=== PATIENT | female | born 1970 | race Two or more races ===

== ENCOUNTER 2025-02-04 10:29 | Emergency (ER) | payer MEDICAID, SELFPAY ==
[2025-02-04 10:46] VITALS: BP 136/90; PULSE 114; RESP 18; TEMP 37.1; O2SAT 97; BMI 31.6
--- NOTE | 2025-02-04 10:50 | XR_ITS ---
Examination: Abdomen sonogram, Limited Date and time of exam: February 04, 2025 1110 hours INDICATIONS: Onset right upper abdominal pain beginning 3 days ago Technique: Real-time crawford scale transabdominal sonographic images of the upper abdomen obtained. Findings: Normal gallbladder. Normal common bile duct 0.4 cm Pancreatic head 2.1 cm Liver 14.1 cm fatty infiltration Normal hepatopedal portal venous flow Patent IVC IMPRESSION: Normal gallbladder.
--- NOTE | 2025-02-04 10:50 | XR_ITS ---
Examination: CT abdomen and pelvis without contrast. Coronal 3-D reconstructions. Sagittal 2-D reconstructions. Date and time of exam:February 04, 2025 1113 hours, comparison March 16, 2024 INDICATIONS: Right-sided flank pain today, history pancreatitis CTDI: vol (mGy): 9.05 DLP: (mGycm): 486 Technique: Axial images of the abdomen have been obtained, 3 mm slice thickness Intravenous contrast material has not been administered. Low dose protocols were performed. One or more of the following dose reduction techniques were used; automated exposure control, adjustment of the mA and/or KV according to patient size, use of iterative reconstruction technique. Findings: Diffuse fatty infiltration throughout the liver, no focal liver or splenic lesions No gallstones No pancreatic mass. No renal or ureteral calculi, no hydronephrosis Aorta normal size No bowel obstruction Normal appendix Atrophic uterus No bladder mass or bladder calculi Moderate osteopenia Impression: No renal or ureteral calculi, no hydronephrosis Normal appendix
--- NOTE | 2025-02-04 10:50 | XR_ITS ---
Examination: PA lateral chest 2 views TECHNIQUE: Upright PA lateral chest 2 views Date and time: February 04, 2025 1058 hours INDICATIONS: Chest pain today. FINDINGS: Normal heart size. Lungs are clear. Osseous structures are intact. IMPRESSION: No active disease.
--- NOTE | 2025-02-04 10:51 | PD.EDRME ---
Rapid Medical Screening Exam RME Arrival date/time: 02/04/25 10:29 54-year-old female presents to the emergency department complaint of upper abdominal pain as well as right-sided rib pain yes Chief Complaint: Abdominal Pain Time Seen by Provider: 02/04/25 10:38 Vital signs: Vital Signs Temperature 98.8 F 02/04/25 10:46 Pulse Rate 114 H 02/04/25 10:46 Respiratory Rate 18 02/04/25 10:46 Blood Pressure 136/90 H 02/04/25 10:46 Pulse Oximetry (%) 97 02/04/25 10:46 Oxygen Delivery Method Room Air 02/04/25 10:46
[2025-02-04 11:14] LABS: Basophils # (Auto) 0.1 Thou/mm3 (0.0-0.2); Basophils % (Auto) 1 % (0-2.5); Eosinophils # (Auto) 0.1 Thou/mm3 (0.0-0.5); Eosinophils % (Auto) 1 % (0-10); Hematocrit 39.3 % (36.0-46.0); Hemoglobin 13.2 g/dL (12.0-16.0); Immature Granulocytes Auto 0.02 Thou/mm3 (0.00-0.00); Lymphocytes # (Auto) 0.9 Thou/mm3 (1.0-4.8); Lymphocytes % (Auto) 14 % (10-50); Mean Corpuscular HGB Conc 33.6 g/dl (31.0-37.0); Mean Corpuscular Hemoglobin 33.6 pg (25.0-35.0); Mean Corpuscular Volume 100 fL (80-100); Monocytes # (Auto) 0.7 Thou/mm3 (0.0-0.8); Monocytes % (Auto) 11 % (0-12); Neutrophils # (Auto) 4.7 Thou/mm3 (1.8-7.7); Neutrophils % (Auto) 72 % (37-80); Nucleated Red Blood Cell # 0.00 Thou/mm3 (0.00-0.00); Nucleated Red Blood Cell % 0 /100 WBC (0); Platelet Count 267 Thou/mm3 (140-440); RDW Standard Deviation 49.4 fL (36.4-46.3); Red Blood Count 3.93 Miln/mm3 (4.00-5.20); White Blood Count 6.5 Thou/mm3 (3.6-11.0)
[2025-02-04 11:24] LABS: Collection Type, Urine Clean Catch
[2025-02-04 11:27] LABS: Alanine Aminotransferase 41 U/L (10-49); Albumin, Serum 4.9 gm/dL (3.5-5.0); Albumin/Globulin Ratio 1.8 (1.2-2.2); Alkaline Phosphatase 88 U/L (46-116); Anion Gap 15 (7-16); Aspartate Amino Transferase 47 U/L (0-34); BUN/Creatinine Ratio 9 Ratio (12-20); Bilirubin,Total 0.9 mg/dL (0.3-1.2); Blood Urea Nitrogen 8 mg/dL (9-23); Calcium 10.1 mg/dL (8.3-10.6); Calcium (Corrected) 10.1 mg/dL (8.5-10.1); Carbon Dioxide 23.8 mMol/L (20.0-31.0); Chloride 98 mMol/L (98-107); Creatinine (Component) 0.9 mg/dL (0.6-1.3); Estimated Creatinine Clearance 55.4 mL/min (>60); Globulin 2.8 gm/dL (2.3-3.5); Glucose 130 mg/dL (74-106); Lipase 23 U/L (12-53); Osmolality,Calculated 274 (275-295); Potassium 4.1 mMol/L (3.4-5.1); Sodium 137 mMol/L (136-145); Total Protein 7.7 gm/dL (5.7-8.2); Troponin I < 0.002 ng/mL (0.0-0.045); eGFR > 60 See Note
[2025-02-04 12:03] LABS: Bacteria,Urine Rare; Bilirubin,Urine 1+ (Negative); Blood,Urine Negative (Negative); Clarity,Urine Turbid (Clear/Hazy); Color,Urine Yellow (Lt Yel-Yel); Culture Indicated,Urine Not Indicated; Glucose, Urine Negative (Negative); Hyaline Casts,Urine 1 /hpf (0-1); Ketones,Urine 2+ (Negative); Leukocyte Esterase,Urine Positive (Negative); Nitrite,Urine Negative (Negative); PH,Urine 6.0 (5.0-7.0); Protein,Urine 1+ (Neg - Trace); RBC,Urine 15 /hpf (0-3); Specific Gravity,Urine 1.020 (1.001-1.035); Squamous Epithelial Cell,Urine 22 /hpf (0-5); Urobilinogen,Urine 3.0 mg/dL (0.0-1.0); WBC,Urine 6 /hpf (0-5)
--- NOTE | 2025-02-04 12:42 | PD.EDABDPN ---
ED Abdominal Pain RME/HPI General Chief Complaint: Abdominal Pain Stated complaint: RIGHT UPPER MID ABD. PAIN X3 DAYS, Time seen by provider: 02/04/25 10:38 Arrival date/time: 02/04/25 10:29 RME / HPI RME / HPI narrative: 54-year-old female presents to the emergency department complaint of upper abdominal pain as well as right-sided rib pain for the last 3 days, comes and goes, described as sharp pain, severity mild. Patient denies any fever denies any vomiting denies any diarrhea denies any shortness of breath denies any cough. Patient also complaining of last bowel movement 3 days ago. No medication was taken prior to ER visit. Related Data Home Medications ?Medication ?Instructions ?Recorded ?Confirmed clotrimazole-betamethasone 1 1 applic topical DAILY PRN Rash 03/06/24 03/17/24 %-0.05 % topical cream cyclobenzaprine 10 mg tablet 10 mg PO BID PRN Muscle Spasm 03/06/24 03/17/24 linaclotide 145 mcg capsule 145 mcg PO DAILY PRN constipation 03/06/24 03/17/24 (Linzess) tretinoin 0.025 % topical cream 1 applic topical HS 03/06/24 03/17/24 Previous Rx's ?Medication ?Instructions ?Recorded folic acid 1 mg tablet 1 mg PO QDAY #30 tabs 03/06/24 thiamine HCl (vitamin B1) 100 mg 100 mg PO QDAY #30 tabs 03/06/24 tablet acetaminophen 325 mg tablet 650 mg (2 x 325 mg) PO Q6H PRN 03/18/24 Pain Or Fever > 101 #30 tabs Allergies Allergy/AdvReac Type Severity Reaction Status Date / Time No Known Allergies Allergy Verified 02/04/25 10:33 Review of Systems Review of Systems Narrative Review of Systems: Review of system reviewed and within normal limits except mentioned in HPI ED Exam Narrative Physical exam: VITAL SIGNS: Reviewed. GENERAL APPEARANCE: Alert and interactive, follows commands, no acute distress, HEAD AND FACE: Non-traumatic. ENT: PERRL, pink conjunctivitis, eyelid no trauma, Mucous membrane moist. NECK: Supple, nontender, no nuchal rigidity. CHEST: No tenderness, no crepitus, no paradoxical movement, no retractions. LUNGS: Clear, well ventilated, symmetric, no rales, no wheezing, no ronchi, no stridor, good breath sounds bilaterally. HEART: Regular rate, regular rhythm, no murmur, no gallops. ABDOMEN: Soft, positive bowel sounds, nondistended, no guarding, right upper quadrant tenderness, no rebound, no masses, RECTAL: Deferred. GENITAL: Deferred. NEUROLOGICAL: Gross motor function intact sensory function intact, Appropriate for age. MUSCULOSKELETAL: low back nontender, full range of motion. EXTREMITIES: Nontender, full range of motion. SKIN: Color pink, dry, no rash, no lacerations, no abrasions, no contusions. LYMPHATICS: Deferred. Course Quality Measures none Orders Category Date Time Status CT abdomen pelvis wo con Stat Exams 02/04/25 10:50 Completed US gall bladder Stat Exams 02/04/25 10:50 Completed XR chest 2V Stat Exams 02/04/25 10:50 Completed CBC Stat Lab 02/04/25 10:57 Completed Comprehensive Metabolic Panel Stat Lab 02/04/25 10:57 Completed Lipase Stat Lab 02/04/25 10:57 Completed Troponin I Stat Lab 02/04/25 10:57 Completed UA, C/S IF [Urinalysis, C/S if Indicated] Stat Lab 02/04/25 11:13 Completed Vital Signs Vital signs: Vital Signs Temperature 98.8 F 02/04/25 10:46 Pulse Rate 114 H 02/04/25 10:46 Respiratory Rate 18 02/04/25 10:46 Blood Pressure 136/90 H 02/04/25 10:46 Pulse Oximetry (%) 97 02/04/25 10:46 Oxygen Delivery Method Room Air 02/04/25 10:46 Abdominal Pain MDM MDM Narrative MDM Narrative:: 54-year-old female presents to the emergency department complaint of upper abdominal pain as well as right-sided rib pain for the last 3 days, comes and goes, described as sharp pain, severity mild. Patient denies any fever denies any vomiting denies any diarrhea denies any shortness of breath denies any cough. Patient also complaining of last bowel movement 3 days ago. No medication was taken prior to ER visit. Patient CBC showed no leukocytosis. CMP showed no acute pathology except for slightly elevated AST of 47. Urinalysis considered collection. Patient is not having any symptoms of UTI no dysuria no frequency. Ultrasound of the gallbladder came back unremarkable. Chest x-ray came back unremarkable CT scan of the abdomen and pelvis showed No renal or ureteral calculi, no hydronephrosis Normal appendix Results discussed with the patient. Patient was advised to closely follow-up with PCP. Patient was also advised to take her own Linzess for constipation. Patient data External records reviewed:: None Clinical information provided by:: patient Social determinants that could affect healthcare access:: none Patient has the following chronic illnesses:: None How is presenting disease/condition affected by chronic disease/condition?: no chronic disease Evaluation data The following diagnostics were reviewed and interpreted by me:: lab results, radiology exam(s) and EKG tracing(s) Lab and/or radiology exams considered but not ordered:: None Interpretation Summary: See results MDM Medications / Prescriptions Medications or Prescriptions considered but not ordered:: None Medication administrations:: None Consultations Consultation(s) initiated? (list below): No Diagnosis Differential diagnosis abdominal pain: abdominal pain, constipation, small bowel obstruction and other (Cholelithiasis) Most likely diagnosis given after review of the tests above:: Abdominal pain Admission Indicated Admission indicated?: not indicated Admission Request Was there a request for admission?: No Disposition Plan Disposition Plan: Discharge Discharge Attestation Discharge Attestation: The patient was given an opportunity to ask questions and understood the discharge instructions. Discharge instructions specifically effects, indications for sooner follow up or return to the emergency department, and the expected course of current diagnosis. Patient condition: Stable Discharge Plan Plan Patient Disposition: HOME (Self Care) Discharge Disposition comment: stable Prescriptions/Referrals Prescriptions/Med Rec: No Action acetaminophen 325 mg Tablet 650 mg PO Q6H PRN (Reason: Pain Or Fever > 101) Qty: 30 0RF cyclobenzaprine 10 mg tablet 10 mg PO BID PRN (Reason: Muscle Spasm) Patient Comments: TAKE 1 TABLET BY MOUTH TWICE A DAY FOR 30 DAYS NEEDED tretinoin 0.025 % cream 1 applic TOPICAL HS Patient Comments: PLEASE SEE ATTACHED FOR DETAILED DIRECTIONS clotrimazole-betamethasone 1-0.05 % cream 1 applic TOPICAL DAILY PRN (Reason: Rash) Linzess 145 mcg capsule 145 mcg PO DAILY PRN (Reason: constipation) Patient Comments: PLEASE SEE ATTACHED FOR DETAILED DIRECTIONS thiamine HCl (vitamin B1) 100 mg tablet 100 mg PO QDAY Qty: 30 0RF folic acid 1 mg tablet 1 mg PO QDAY Qty: 30 0RF Referrals: No Primary/Family,Physician [Primary Care Provider] - In 1 week Problem List Clinical Impression: Right upper quadrant pain Patient/Caregiver Discharge Instructions Discharge Activity: activity as tolerated Education Materials: Abdominal Pain Additional Instructions: Thank you for the opportunity for serving you today. You are stable for discharged . You are advised to: Follow-up with your PCP in 1 to 2 days Return to ED for worsening of symptoms Increase oral fluids Take your own Linzess as needed for constipation Print Language: Estonian Stand Alone Forms: Alissa Award Info., Patient Portal Info Letter PA/REPLENISHMENT SPECIALIST Supervising Physician PA/REPLENISHMENT SPECIALIST Supervising Physician: MD Arpita
== END 2025-02-04 13:13 | disposition home or self-care (01) ==
PROVIDERS: Nurse Practitioner Primary Care; Emergency Provider Emergency Medicine
DX: R10.11 Right upper quadrant pain (principal); R07.9 Chest pain, unspecified
CPT/HCPCS: 36415; 71046; 74176; 76705; 80053; 81001; 83690; 84484; 85025; 99284